=== PATIENT | male | born 1990 | race Asian ===

== ENCOUNTER 2020-01-16 20:46 | Emergency (ER) | payer BC ==
[~2020-01-16] VITALS: Ht 167.6 cm; Wt 95.3 kg
[2020-01-16] MEDS ORDERED: LORAZEPAM 1 MG TABLET PO ONE (21:00)
[2020-01-16] MEDS ORDERED: LORAZEPAM 0.5 MG TABLET ONE (21:02)
--- NOTE | 2020-01-16 22:04 | NUR ---
PT IS MEDICALLY STABLE FOR D/C. Patient discharged to home in stable condition. Rx and Written and verbal after care instructions given. Patient verbalizes understanding of instruction.
[2020-01-16 22:05] VITALS: BP 140/96
== END 2020-01-16 22:06 | disposition home or self-care (01) ==
LOC: ER 20:49
DX: F41.1 Generalized anxiety disorder (principal); J45.909 Unspecified asthma, uncomplicated